=== PATIENT | female | born 1945 | race Caucasian/White ===

== ENCOUNTER → 2017-05-17 | Day surgery (SDC) | payer OTHER ==
[~2017-05-17] VITALS: Ht 157.5 cm; Wt 97.5 kg
[~2017-05-17] MED LIST: *MEPERIDINE 25 MG INJ VIAL PERIprocedural Use ONLY ONE; ACETAMINOPHEN/HYDROcodone 325 MG/5 MG TAB ONE; AMPICILLIN/SULBAC 3 GM/NS 100 ML IV SCH; ASPI81TA23 PO; CEPH-460 PO; CHLORHEXIDINE GLUCONATE 2 % 1 PACK (2 CLOTHS) TOPICAL PRN; FAMOTIDINE 20 MG/2 ML VIAL ONE; GABA100C4 PO; HYDR-3516 PO; INSULIN HUMAN REGULAR 1,000 UNITS/10 ML VIAL SQ PRN; LACTATED RINGER'S 1000 ML IV PRN; LEVO-171 PO; LIDOCAINE 1%/EPINEPHrine 1:100,000 SOLN 20 ML VIAL ONE; METF500T PO; METOPROLOL TARTRATE 25 MG TAB PO PRN; MIDAZOLAM HCL 2 MG/2 ML VIAL ONE; MORPHINE SULFATE 2 MG/ML INJ ONE; MUPIROCIN 2% OINT 22 GM TUBE ONE; POVIDONE IODINE 5% (ANTISEPSIS KIT) 4 APPLICATIONS EACH NARE PRN; PROT40TA PO; SODIUM CHLORID 0.9% 500 ML IV PRN
[2017-05-17 12:03] VITALS: PULSE 56
[2017-05-17 12:45] VITALS: PULSE 64
[2017-05-17 13:00] VITALS: TEMP 98.2
[2017-05-17 13:45] VITALS: BP 162/71; PULSE 60; RESP 14; O2SAT 100
--- NOTE | 2017-05-17 13:59 | EKG ---
Date Performed: 05/17/2017 Time Performed: 09:12:31 PTAGE: 71 years EKG: SINUS BRADYCARDIA VOLTAGE CRITERIA FOR LVH ABNORMAL ECG NO PREVIOUS TRACING DOCTOR: Sanya Gann Interpretating Date/Time 05/17/2017 13:57:54
--- NOTE | 2017-05-19 08:59 | MP ---
cc: HUNG GALINDO M.D. DATE OF SURGERY: May 17, [address] Hung Galindo. PREOPERATIVE DIAGNOSIS Chronic left submandibular sialoadenitis. POSTOPERATIVE DIAGNOSIS Chronic left submandibular sialoadenitis. OPERATION PERFORMED Excision left submandibular salivary gland. INDICATIONS Documented in the history and physical. DESCRIPTION OF OPERATION The patient was taken to OR #2 and placed in the supine position. Following induction of general anesthesia and intubation a shoulder roll was placed and the patient was positioned for surgery of the left lateral neck. The neck was marked with a 6 cm line two fingerbreadths below the inferior border of the mandible. This was approximately the level of the lower extent of the submandibular salivary gland. The line was injected with 3 mL of 1% Xylocaine with epinephrine 1:100,000. She was then prepped and draped for surgery. The line was incised down to subplatysmal plane exposing superficial layer of deep cervical fascia. This fascia was elevated and bluntly penetrated along the inferior border of the submandibular gland and it was dissected free from the gland on this lateral surface using blunt and bipolar cautery dissection. The gland was grasped with a Kemp retractor and retracted inferiorly, then elevated and released of all its fascial attachments on all sides using the blunt and bipolar cautery dissection. The facial artery and vein were identified in the posterior superior of the gland and were doubly clamped and ligated at this location. The lingual nerve was identified. It was also freed from the duct and salivary gland, mylohyoid muscle was retracted anteriorly exposing the full duct of the gland, at approximately its mid point it was doubly clamped and ligated with a 2-0 Silk suture ligature freeing the salivary gland and was passed off the field as specimen. The wound was irrigated and suctioned. A quarter-inch Cheryl drain was placed into the depths of the wound and closure was begun using 3-0 Vicryl interrupted in the platysma layer, 4-0 Vicryl subcutaneous layer and 5-0 fast-absorbing plain gut in the skin. Drain was held in place with a 3-0 Vicryl. [place] dressing was applied and the procedure was terminated. The patient was reversed from anesthesia and taken to recovery in good condition. There were no complications. Blood loss was 30 mL. MD GREG Smith/FLAVIA /7:44 AM /8:57 AM
== END | disposition home or self-care (01) ==
LOC: PHSDC 07:08 → EDSEX 07:08
PROVIDERS: ATTEND Otolaryngology
DX: K11.23 Chronic sialoadenitis (principal); R94.31 Abnormal electrocardiogram [ECG] [EKG]
CPT/HCPCS: 00100; 42440; 88307; 93005; J0295; J2175; J2250; J2270; J3010; J7120; 88305